=== PATIENT | male | born 1960 | race Caucasian/White ===

== ENCOUNTER 2017-11-25 13:30 | Emergency (ER) | payer SELFPAY ==
[~2017-11-25] VITALS: Ht 170.2 cm; Wt 77.0 kg
[2017-11-25] MEDS ORDERED: NAPR-58 PO (13:48)
[2017-11-25] MEDS ORDERED: OxyCODONE HCL/ACETAMINOPHEN 5-325 MG TABLET PO ONE (15:00)
[2017-11-25] MEDS ORDERED: LIDOCAINE 2%/EPI 1:200,000/PF 20 ML VIAL INJ ONE (15:00)
[2017-11-25] MEDS ORDERED: POVIDONE-IODINE 10% 15 ML SOLUTION UD TP ONE (15:00)
[2017-11-25 15:49] VITALS: BP 149/87
== END 2017-11-25 17:52 | disposition home or self-care (01) ==
LOC: EMS 13:31
DX: L02.31 Cutaneous abscess of buttock (principal); Z79.1 Long term (current) use of non-steroidal anti-inflammatories (NSAID)
CPT/HCPCS: 10061; 99284; J2001

== ENCOUNTER 2017-11-27 11:21 | Emergency (ER) | payer SELFPAY ==
[~2017-11-27] VITALS: Ht 162.6 cm; Wt 68.0 kg
[~2017-11-27 11:21] MED LIST: NAPR-58 PO
[2017-11-27] MEDS ORDERED: IBUPROFEN 600 MG TABLET PO ONE (14:45)
[2017-11-27 15:16] VITALS: BP 137/75
== END 2017-11-27 15:28 | disposition home or self-care (01) ==
LOC: EMS 11:21
DX: L02.31 Cutaneous abscess of buttock (principal); R03.0 Elevated blood-pressure reading, without diagnosis of hypertension; Z48.00 Encounter for change or removal of nonsurgical wound dressing
CPT/HCPCS: 99283